=== PATIENT | female | born 1970 | race Caucasian/White ===

== ENCOUNTER → 2016-09-03 | Outpatient (CLI) | payer BC ==
[~2016-09-03] MED LIST: ALBU1AER9 INH; ALEN70TA2 PO; CITA20TA4 PO; DIPH-437 PO; FLVHFA110 INH; LISI-461 PO; MULT-506 PO; OXYC1TAB3 PO; VNTHFA/IN INH; ZNTT/150 PO
--- NOTE | 2016-09-03 15:00 | DIAGNOSTIC IMAGING REPORT ---
CHEST 2 VIEWS ROUTINE CLINICAL HISTORY: SARCOIDOSIS COMPARISON STUDY: October 28, 2015 FINDINGS: The cardiac and mediastinal contours remain stable. There is been resolution of the presented identified hilar adenopathy. There are old left-sided rib fractures with adjacent pleural reaction. There is no failure. There is no focal pulmonary consolidation.[ IMPRESSION: Healing left-sided rib fractures with adjacent pleural reaction. No active disease in the chest. Electronically signed by: Kt Rasheed M.D. 09/03/2016 2:59 PM Dictated Date/Time: 09/03/2016 2:57 PM
== END | disposition home or self-care (01) ==
LOC: MERGE 14:37 → C.RAD1850 14:37
PROVIDERS: ATTEND Internal Medicine Pulmonary Disease
DX: D86.9 Sarcoidosis, unspecified (principal)

== ENCOUNTER 2016-10-24 18:15 | Emergency (ER) | payer BC ==
[~2016-10-24] VITALS: Ht 172.7 cm; Wt 91.8 kg
[~2016-10-24 18:15] MED LIST changes: -ALEN70TA2 PO; -LISI-461 PO; -OXYC1TAB3 PO; -VNTHFA/IN INH
[2016-10-24 18:29] VITALS: TEMP 36.7; Ht 172.7 cm; Wt 91.8 kg
[2016-10-24] MEDS ORDERED: LISI-461 PO (18:37)
[2016-10-24] MEDS ORDERED: VNTHFA/IN INH (18:37)
[2016-10-24] MEDS ORDERED: ALEN70TA2 PO (18:37)
[2016-10-24] MEDS ORDERED: OXYCODONE HCL IR 5 MG TAB (IMMEDIATE RELEASE) PO STA (18:39)
--- NOTE | 2016-10-24 19:29 | DIAGNOSTIC IMAGING REPORT ---
THORACIC SPINE 3 VIEWS ROUTINE CLINICAL HISTORY: Overhead lifting, heard "crunch" and felt pain in mid back COMPARISON STUDY: Chest radiographs September 03, 2016. FINDINGS: Alignment of the thoracic spine is anatomic. No acute thoracic spine fracture is identified. There is mild multilevel degenerative disc disease of the thoracic spine. IMPRESSION: No acute thoracic spine fracture identified by radiography. Electronically signed by: Sinan Gunter M.D. 10/24/2016 7:27 PM Dictated Date/Time: 10/24/2016 7:25 PM
--- NOTE | 2016-10-24 20:30 | DIAGNOSTIC IMAGING REPORT ---
THORACIC SPINE WITHOUT CLINICAL HISTORY: Mid back pain s/p heavy lifting COMPARISON STUDY: Thoracic spine radiographs performed earlier today and chest CT September 29, 2015. FINDINGS: Alignment of the thoracic spine is anatomic. Vertebral body heights are maintained. There is no acute fracture within the thoracic spine. Mild multilevel degenerative changes are present. Central canal and neural foramen are suboptimal assessed by CT. IMPRESSION: 1. No acute thoracic spine fracture or subluxation. 2. Mild multilevel degenerative disc disease of the thoracic spine. Electronically signed by: Sinan Gunter M.D. 10/24/2016 8:29 PM Dictated Date/Time: 10/24/2016 8:23 PM
[2016-10-24] MEDS ORDERED: OXYCODONE IR HOME PACK PO STA (20:49)
[2016-10-24] MEDS ORDERED: OXYC1TAB3 PO (20:50)
--- NOTE | 2016-10-24 20:51 | EMERGENCY ROOM VISIT NOTE ---
History First contact with patient: 18:34 Chief Complaint: BACK PAIN Stated Complaint: BACK PAIN History of Present Illness The patient is a 46 year old female who presents to the Emergency Room via private vehicle accompanied by male with complaints of "back pain". The patient states that earlier today, approximately 1.5 hours prior to arrival she was at home reaching above her head for a small bag of goldfish. She states that when she went to lift back up she felt a crunch in her mid back between his shoulder blades. She rates the pain as a 10/10. She is concerned that she may have broken her back, she was recently diagnosed with osteoporosis. She rates her pain as a 10/10. She denies any chance of . She denies any pain in neck or low back. There is no abdominal pain. There is no chest pain or shortness of breath. Review of Systems A complete 6-point Review of Systems was discussed with the patient, with pertinent positives and negatives listed in the History of Present Illness. All remaining Review of Systems questions can be considered negative unless otherwise specified. Past Medical/Surgical History Medical Problems: (1) Mediastinal adenopathy Osteoporosis Family History No pertinent. Social History Smoking Status: Current Every Day Smoker Social History: Patient lives locally with family. Current/Historical Medications Scheduled Albuterol Hfa (Ventolin Hfa), 2-4 PUFFS INH Q6H Alendronate Sodium (Fosamax), 70 MG PO WK Citalopram Hydrobromide (Citalopram Hydrobromide), 1 TAB PO QAM Lisinopril (Zestril), 10 MG PO DAILY Multivitamin (Multivitamin), 1 TAB PO QAM Ranitidine (Zantac), 150 MG PO QAM Scheduled PRN Oxycodone Ir (Roxicodone Ir), 1-2 TAB PO Q4H PRN for Pain Allergies Coded Allergies: No Known Allergies (Unverified , 10/24/16) Physical Exam Vital Signs Date Time Temp Pulse Resp B/P (MAP) Pulse Ox O2 Delivery O2 Flow Rate FiO2 10/24/16 20:58 77 18 109/69 100 10/24/16 20:04 67 16 128/67 97 Room Air 10/24/16 18:29 36.7 83 18 137/89 99 Room Air Physical Exam VITAL SIGNS - Vital signs and nursing notes were reviewed. Stable vital signs. GENERAL -46-year-old female appearing her stated age who is in no acute distress. Communicates well with provider and answers questions appropriately. SKIN - Without rashes. The skin overlying the spine is unremarkable. HEAD - NC/AT. NECK - Neck with FROM. Supple to palpation. No C-spine tenderness. LUNGS - Chest wall symmetric without accessory muscle use, intercostals retractions, or central cyanosis. Normal vesicular breath sounds CTA B/L. No wheezes, rales, or rhonchi appreciated. CARDIAC - RRR with S1/S2. No murmur, rubs, or gallops appreciated. MUSCULOSKELETAL: There is tenderness to palpation overlying the mid thoracic spine region. There is no paraspinous musculature tenderness. EXTREMITIES - No clubbing or peripheral cyanosis. No pretibial edema present. Patient is able to axial load without difficulty. +5/5 strength noted in UE/LE bilaterally. NEUROLOGIC - Cranial nerves II through XII grossly intact. Sensory intact to light touch throughout. No neurovascular deficits. PSYCH - Pt is very pleasant and interacts well with examiner. Medical Decision & Procedures ER Provider Diagnostic Interpretation: THORACIC SPINE 3 VIEWS ROUTINE CLINICAL HISTORY: Overhead lifting, heard "crunch" and felt pain in mid back COMPARISON STUDY: Chest radiographs September 03, 2016. FINDINGS: Alignment of the thoracic spine is anatomic. No acute thoracic spine fracture is identified. There is mild multilevel degenerative disc disease of the thoracic spine. IMPRESSION: No acute thoracic spine fracture identified by radiography. Electronically signed by: Sinan Gunter M.D. 10/24/2016 7:27 PM Dictated Date/Time: 10/24/2016 7:25 PM THORACIC SPINE WITHOUT CLINICAL HISTORY: Mid back pain s/p heavy lifting COMPARISON STUDY: Thoracic spine radiographs performed earlier today and chest CT September 29, 2015. FINDINGS: Alignment of the thoracic spine is anatomic. Vertebral body heights are maintained. There is no acute fracture within the thoracic spine. Mild multilevel degenerative changes are present. Central canal and neural foramen are suboptimal assessed by CT. IMPRESSION: 1. No acute thoracic spine fracture or subluxation. 2. Mild multilevel degenerative disc disease of the thoracic spine. Electronically signed by: Sinan Gunter M.D. 10/24/2016 8:29 PM Dictated Date/Time: 10/24/2016 8:23 PM Medications Administered Medications (Trade) Dose Ordered Sig/Barrett Route Start Time Stop Time Status Last Admin Dose Admin Oxycodone HCl (Roxicodone Immediate Rel Tab) 5 mg NOW STAT PO 10/24/16 18:39 10/24/16 18:41 DC 10/24/16 18:39 5 MG Medical Decision Patient was seen and evaluated as above. After obtaining a thorough history and physical examination the decision was made to obtain a radiograph of the thoracic region. She was given oxycodone for her pain. She was reevaluated and feeling much better. Benefits versus risk of obtaining a CT scan to rule out small fracture that was not able to be seen on x-ray was discussed. The decision was made to obtain a CT scan. Results as above. No acute fracture. I suspect the patient is expressing a muscle strain in this region. She'll be managed in the outpatient setting with a short course of pain medication, as well as a work note so she may rest over the next few days. She is to follow- up with her family doctor regarding today's findings. She was educated upon worrisome symptoms in which to return, had persistent or discharge, and was discharged home in good condition. In evaluation treatment this patient following differential diagnoses were entertained: Compression fracture, subluxation, dislocation, muscle strain, among others. [place] [facility] Monitoring Program Search Results: patient reviewed within database, no issues identified Impression Primary Impression: Acute thoracic back pain Departure Information Dispostion Home / Self-Care Condition GOOD Prescriptions Oxycodone Ir (Roxicodone Ir) 5 Mg Tab 1-2 TAB PO Q4H Y for Pain, #15 TAB For Initial Treatment Prov: Tommy Jones PA-C 10/24/16 Referrals Lulú Jauregui D.O. (PCP) Patient Instructions My [facility] Additional Instructions You have been treated in the Emergency Department for Back Pain. You have received pain medicine in the emergency department which impairs your ability to operate a vehicle. It is illegal for you to drive after receiving these medicines. You have been prescribed Oxy IR to be used for pain control. This is a narcotic medication. You cannot drive or consume alcohol while on this medicine. This medicine should only be used for pain that cannot be controlled with over-the- counter pain medicines. For pain control, you can use the following [id number] medicines (if >12 yo): - Regular strength (325mg/tab) Tylenol (acetaminophen) 2 tabs every 4-6 hours as needed. Do not exceed 12 tablets in a 24 hour period. Avoid taking more than 3 grams (3000 mg) of Tylenol per day. This includes any other sources of acetaminophen you may take on a regular basis. - Regular strength (200 mg/tab) Advil (ibuprofen) 1-2 tabs every 4-6 hours as needed. Do not exceed a dose of 3200 mg per day. If this is an acute injury, ice can be applied to the area of pain for the first 3 days to help decrease pain and inflammation. After the first 3 days, a heating pad can be used over the area for continued soothing relief. You should schedule a follow-up appointment in 2-3 days with your Primary Care Provider for further evaluation and treatment of your back pain. Return to the Emergency Department if your current symptoms worsen despite treatment course outlined above, or if you develop any of the following symptoms : intractable pain despite aforementioned treatment course, loss of control of your bowel or bladder, numbness or tingling in your groin, or development of a fever. Please return to the emergency department with any new/concerning symptoms.
[2016-10-24 20:58] VITALS: BP 109/69; PULSE 77; O2SAT 100
== END 2016-10-24 20:59 | disposition home or self-care (01) ==
LOC: C.EDB 18:18 → MERGE 18:18 → C.EDD 20:59
DX: M54.6 Pain in thoracic spine (principal); M81.0 Age-related osteoporosis without current pathological fracture; F17.210 Nicotine dependence, cigarettes, uncomplicated; Z79.899 Other long term (current) drug therapy

== ENCOUNTER → 2017-03-11 | Outpatient (CLI) | payer BC ==
[~2017-03-11] MED LIST changes: -ALBU1AER9 INH; +ALEN70TA2 PO; -DIPH-437 PO; -FLVHFA110 INH; +LISI-461 PO; +OXYC1TAB3 PO; +VNTHFA/IN INH
--- NOTE | 2017-03-11 16:13 | DIAGNOSTIC IMAGING REPORT ---
CHEST 2 VIEWS ROUTINE CLINICAL HISTORY: D86.9 [id number] COMPARISON STUDY: 09/03/2016 FINDINGS: The cardiac and mediastinal contours are normal. There is no evidence of focal pulmonary consolidation. There is no evidence of failure. No pleural effusions are visualized.[ There is an old left-sided rib fracture. There is a calcified granuloma within the left upper lung zone. IMPRESSION: No active disease in the chest. Electronically signed by: Kt Rasheed M.D. 03/11/2017 4:12 PM Dictated Date/Time: 03/11/2017 4:11 PM
== END | disposition home or self-care (01) ==
LOC: C.RAD1850 15:34
PROVIDERS: ATTEND Internal Medicine Pulmonary Disease
DX: D86.9 Sarcoidosis, unspecified (principal)

== ENCOUNTER → 2017-11-12 | Outpatient (CLI) | payer BC ==
[~2017-11-12] MED LIST changes: -OXYC1TAB3 PO; +RANI150T85 PO; -ZNTT/150 PO
--- NOTE | 2017-11-12 14:31 | DIAGNOSTIC IMAGING REPORT ---
CHEST 2 VIEWS ROUTINE CLINICAL HISTORY: Sarcoidosis of lung. Cough. COMPARISON STUDY: Chest CT September 29, 2015 and chest radiograph March 11, 2017. FINDINGS: Several old left rib fractures are incidentally noted. Lung volumes are normal. No pneumothorax or pleural effusion is present. There is no consolidation. Cardiac size is normal. Mediastinal contours are stable. Appearance of the chest is unchanged. IMPRESSION: No acute cardiopulmonary findings. Electronically signed by: Sinan Gunter M.D. 11/12/2017 2:30 PM Dictated Date/Time: 11/12/2017 2:28 PM
== END | disposition home or self-care (01) ==
LOC: C.RADBC 13:59
PROVIDERS: ATTEND Internal Medicine Pulmonary Disease
DX: D86.0 Sarcoidosis of lung (principal); R05 Cough